=== PATIENT | male | born 1940 | race African-American/Black ===

== ENCOUNTER 2018-04-08 13:59 | Emergency (ER) | payer MEDICARE, BC ==
[~2018-04-08] VITALS: Ht 174 cm; Wt 68.0 kg
[2018-04-08 14:12] VITALS: BP 120/67
--- NOTE | 2018-04-08 16:00 | Diagnostic Imaging Report ---
EXAM: XR Left Foot Complete, 3 or More Views CLINICAL HISTORY: PAIN TECHNIQUE: Frontal, lateral and oblique views of the left foot. COMPARISON: No relevant prior studies available. FINDINGS: Bones/joints: Osteopenic. Pes planus the calcaneus. No acute fracture. No dislocation. Soft tissues: Diffuse soft tissue swelling. No radiopaque foreign body. IMPRESSION: 1. Diffuse soft tissue swelling. 2. Osteopenic. No acute fracture or malalignment.
--- NOTE | 2018-04-08 16:10 | Diagnostic Imaging Report ---
EXAM: XR Right Foot Complete, 3 or More Views CLINICAL HISTORY: PAIN TECHNIQUE: Frontal, lateral and oblique views of the right foot. COMPARISON: No relevant prior studies available. FINDINGS: Bones/joints: Osteopenic. Pes planus of the calcaneus. Degenerative changes of tarsal bones. No acute fracture. No dislocation. Soft tissues: Unremarkable. No radiopaque foreign body. Vasculature: Atherosclerotic vascular disease. IMPRESSION: 1. Osteopenic. No acute fracture or malalignment. 2. Degenerative changes of tarsal bones.
--- NOTE | 2018-04-08 16:11 | Diagnostic Imaging Report ---
EXAM: XR Left Ankle Complete, 3 or More Views CLINICAL HISTORY: PAIN TECHNIQUE: Frontal, lateral and oblique views of the left ankle. COMPARISON: No relevant prior studies available. FINDINGS: Bones/joints: Osteopenic. Pes planus of the calcaneus. Inferior calcaneal spur. No acute fracture. No dislocation. Soft tissues: Diffuse soft tissue swelling. Vasculature: Atherosclerotic vascular disease. IMPRESSION: 1. Diffuse soft tissue swelling. 2. Osteopenic. No acute fracture or malalignment.
[2018-04-08 16:12] VITALS: BP 133/71
--- NOTE | 2018-04-08 16:12 | Diagnostic Imaging Report ---
EXAM: XR Right Ankle Complete, 3 or More Views CLINICAL HISTORY: PAIN TECHNIQUE: Frontal, lateral and oblique views of the right ankle. COMPARISON: No relevant prior studies available. FINDINGS: Bones/joints: Osteopenic. Degenerative changes of tarsal bones. No acute fracture. No dislocation. Soft tissues: Mild soft tissue swelling. Vasculature: Atherosclerotic vascular disease. IMPRESSION: 1. Mild soft tissue swelling. 2. Osteopenic. No acute fracture or malalignment.
[2018-04-08] MEDS ORDERED: Cephalexin 500mg cap ORAL ONE (16:15)
[2018-04-08] MEDS ORDERED: CEPHALEXIN500 MG ORAL (16:26)
[2018-04-08 16:43] VITALS: BP 115/71
--- NOTE | 2018-04-08 18:48 | Emergency Room Report ---
History of Present Illness General Chief Complaint: Edema Source: Family Member Present Illness HPI 77-year-old male presents ED for evaluation. Son at bedside states that patient is having persistent increased swelling to his bilateral feet times one week. Patient notes pain with walking. Denies any recent fall or injury. History of seizures. Pain is dull, 6 out of 10, nonradiating. Denies any other injuries. No other aggravating relieving factors. No other associated symptoms Allergies: Coded Allergies: No Known Allergies (Unverified , 04/08/18) Patient History Past Medical History: HTN, seizures Past Surgical History: none Pertinent Family History: none Social History: Denies: smoking, alcohol use, drug use Immunizations: UTD Reviewed Nursing Documentation: PMH: Agreed; PSxH: Agreed Nursing Documentation-PMH Past Medical History: No History, Except For Hx Hypertension: Yes Hx Seizures: Yes - Last seizure: 03/2017 Review of Systems All Other Systems: negative except mentioned in HPI Physical Exam Vital Signs Date Time Temp Pulse Resp B/P (MAP) Pulse Ox O2 Delivery O2 Flow Rate FiO2 04/08/18 14:09 98.1 42 23 120/67 94 Room Air Sp02 EP Interpretation: reviewed, normal General Appearance: no apparent distress, alert, GCS 15, non-toxic Head: normocephalic Eyes: bilateral eye normal inspection, bilateral eye PERRL ENT: normal ENT inspection Neck: normal inspection Respiratory: normal inspection Cardiovascular #1: normal inspection Gastrointestinal: normal inspection Rectal: deferred Genitourinary: no CVA tenderness Musculoskeletal: swelling - L > R foot/ankle swelling. erythema noted Neurologic: alert, oriented x3, responsive, motor strength/tone normal, sensory intact, speech normal Psychiatric: normal inspection Skin: normal inspection Lymphatic: normal inspection Medical Decision Making Diagnostic Impression: Primary Impression: Cellulitis of foot ER Course Hospital Course 77 yo M presents with bilateral foot/ankle swelling Differential diagnoses include: Fracture, dislocation, sprain, contusion Clinical course Patient placed on stretcher. After initial history and physical, I ordered pain medications and Xrays of bilateral foot/ankle Xrays read shows no acute fracture/dislocation. There is appreciable soft tissue swelling with some warmth to both extremities, left more than right. Discussed findings with son. Consideration for cellulitis. Patient nontoxic, afebrile. Patient be a good candidate for oral antibiotics Given Keflex in ED. Safe for discharge or close outpatient follow-up Diagnosis - cellulitis of foot Stable and discharged to home with prescription for keflex. warm compresses. weight bear as tolerated. Followup with PMD. Return to ED if symptoms recur or worsen Other X-Ray Diagnostic Results Other X-Ray Diagnostic Results #1: X-Ray ordered: L foot # of Views/Limited Vs Complete: 3 View Indication: Swelling EP Interpretation: Yes Interpretation: no dislocation, no fractures Impression: No acute disease Electronically Signed by: Electronically signed by Gilberto Erickson MD Other X-Ray Diagnostic Results #2: X-Ray ordered: L ankle # of Views/Limited Vs Complete: 3 View Indication: Swelling EP Interpretation: Yes Interpretation: no dislocation, no fractures Impression: No acute disease Electronically Signed by: Electronically signed by Gilberto Erickson MD Other X-Ray Diagnostic Results #3: X-Ray ordered: R foot # of Views/Limited Vs Complete: 3 View Indication: Swelling EP Interpretation: Yes Interpretation: no dislocation, no fractures Impression: No acute disease Electronically Signed by: Electronically signed by Gilberto Erickson MD Other X-Ray Diagnostic Results #4: X-Ray ordered: R ankle # of Views/Limited Vs Complete: 3 View Indication: Swelling EP Interpretation: Yes Interpretation: no dislocation, no fractures Impression: No acute disease Electronically Signed by: Electronically signed by Gilberto Erickson MD Last Vital Signs Date Time Temp Pulse Resp B/P (MAP) Pulse Ox O2 Delivery O2 Flow Rate FiO2 04/08/18 16:43 98.1 101 23 115/71 96 Room Air Status: improved Disposition: HOME, SELF-CARE Condition: Stable Scripts Cephalexin* (KEFLEX*) 500 Mg Capsule 500 MG ORAL EVERY 6 HOURS for 7 Days, CAP Prov: Gilberto Erickson MD 04/08/18 Patient Instructions: Cellulitis, [id number] Gilberto Erickson MD Apr 08, 2018 18:48
== END 2018-04-08 16:47 | disposition home or self-care (01) ==
LOC: EMR 15:26
DX: L03.116 Cellulitis of left lower limb (principal); L03.115 Cellulitis of right lower limb; I10 Essential (primary) hypertension; G40.909 Epilepsy, unspecified, not intractable, without status epilepticus
CPT/HCPCS: 99284